=== PATIENT | female | born 1970 | race Two or more races ===

== ENCOUNTER 2020-05-09 06:47 | Emergency (ER) | payer OTHER ==
[~2020-05-09] VITALS: Ht 149.9 cm; Wt 74.8 kg
[2020-05-09] MEDS ORDERED: PROZAC40 MG (07:25)
[2020-05-09] MEDS ORDERED: HYDRODIURIL12.5 MG PO (07:26)
== END 2020-05-09 21:19 | disposition home or self-care (01) ==
LOC: ER 06:47
DX: N39.0 Urinary tract infection, site not specified (principal); B96.29 Other Escherichia coli [E. coli] as the cause of diseases classified elsewhere; R31.0 Gross hematuria; K57.30 Diverticulosis of large intestine without perforation or abscess without bleeding; Z03.818 Encounter for observation for suspected exposure to other biological agents ruled out

== ENCOUNTER 2021-04-22 11:41 | Outpatient (CLI) | payer OTHER ==
[~2021-04-22 11:41] MED LIST: HYDRODIURIL12.5 MG PO; PROZAC40 MG
== END 2021-04-22 11:49 | disposition home or self-care (01) ==
LOC: RAD 11:41
PROVIDERS: ATTEND Orthopaedic Surgery
DX: M25.561 Pain in right knee (principal); M25.562 Pain in left knee

== ENCOUNTER 2021-04-26 10:53 | Outpatient (CLI) | payer OTHER | END 2021-04-26 11:03 | disposition home or self-care (01) | LOC: MRI 10:53 | PROVIDERS: ATTEND Orthopaedic Surgery | DX: M71.561 Other bursitis, not elsewhere classified, right knee (principal); M25.561 Pain in right knee | CPT/HCPCS: 73718 ==